=== PATIENT | female | born 1980 | race Caucasian/White ===

== ENCOUNTER 2016-10-01 12:09 | Emergency (ER) | payer OTHER ==
[~2016-10-01] VITALS: Ht 170.2 cm; Wt 81.5 kg
[~2016-10-01 12:09] MED LIST: ALEVE220 M2 PO; FEROCON CAPSUL1 EACH PO; MIRALAX17 GM PO; MOBIC15 MG PO; NO MEDS; PRILOSEC20 MG PO; VICODIN 5-3001 EACH PO; ZOFRAN4 MG PO
[2016-10-01 14:53] VITALS: BP 120/67
== END 2016-10-01 14:54 | disposition home or self-care (01) ==
LOC: EME 12:09
DX: O26.893 Other specified pregnancy related conditions, third trimester (principal); M54.31 Sciatica, right side; O09.513 Supervision of elderly primigravida, third trimester; Z3A.28 28 weeks gestation of pregnancy; Z87.891 Personal history of nicotine dependence
CPT/HCPCS: 93971; 99281; 99284

== ENCOUNTER 2016-11-23 13:38 | Inpatient (IN) | payer OTHER ==
[~2016-11-23] VITALS: Ht 170.2 cm; Wt 81.6 kg
[2016-11-23] VITALS (17 sets, daily range): BP systolic 116–141; BP diastolic 56–89
[2016-11-23] MEDS ORDERED: ZOLOFT50 MG PO (14:32)
[2016-11-23] MEDS ORDERED: PRENATAL TABLE1 EAC3 PO (14:32)
[2016-11-23 14:48] LABS: EOSINOPHIL (%) 0.3 % (0-5); HEMATOCRIT 27.5 % (36.0-46.0); IMMATURE GRANULOCYTE (%) 0.8 % (0.0-0.7); IMMATURE GRANULOCYTE COUNT 0.1 K/uL; INSTRUMENT ABS NEUTROPHIL CT 5.1 K/uL; LYMPHOCYTE COUNT 1.6 K/uL (1.0-2.8); MCH 24.9 PG (29.0-34.0); MCHC 29.8 G/DL (30.0-36.0); MCV 83.6 FL (83-99); MEAN PLAT.VOLUME 10.4 uM^3 (9.5-12.4); MONOCYTE (%) 6.1 % (3-12); MONOCYTE COUNT 0.4 K/uL (0-0.8); NEUTROPHIL (%) 70.9 % (45-76); NEUTROPHIL COUNT 5.1 K/uL (1.8-6.4); NRBC (%) 0.3 /100 WBC (0-0); PLATELET COUNT 295 K/uL (156-360); RBC DIS.WIDTH-SD 49.1 % (39-53); RED BLOOD COUNT 3.29 M/uL (3.80-5.20); WHITE BLOOD COUNT 7.2 K/uL (4.1-10.2)
[2016-11-24 00:32] VITALS: BP 128/68
[2016-11-24 01:33] VITALS: BP 131/62
[2016-11-24 06:40] LABS: EOSINOPHIL (%) 0.3 % (0-5); HEMATOCRIT 24.2 % (36.0-46.0); IMMATURE GRANULOCYTE (%) 0.5 % (0.0-0.7); IMMATURE GRANULOCYTE COUNT 0.1 K/uL; INSTRUMENT ABS NEUTROPHIL CT 8.6 K/uL; LYMPHOCYTE COUNT 2.6 K/uL (1.0-2.8); MCH 26.2 PG (29.0-34.0); MCV 84.6 FL (83-99); MONOCYTE (%) 5.7 % (3-12); MONOCYTE COUNT 0.7 K/uL (0-0.8); NEUTROPHIL (%) 71.8 % (45-76); NEUTROPHIL COUNT 8.6 K/uL (1.8-6.4); PLATELET COUNT 256 K/uL (156-360); RBC DIS.WIDTH-CV 16.1 % (11.8-14.6); RBC DIS.WIDTH-SD 49.5 % (39-53); RED BLOOD COUNT 2.86 M/uL (3.80-5.20); WHITE BLOOD COUNT 11.9 K/uL (4.1-10.2)
[2016-11-24 09:00] VITALS: BP 130/78
[2016-11-24 14:51] VITALS: BP 126/74
[2016-11-25 07:53] VITALS: BP 125/81
[2016-11-25] MEDS ORDERED: CHROMAGEN,1 CAPSULE PO (10:04)
== END 2016-11-25 14:40 | disposition home or self-care (01) | DRG 775 ==
LOC: LDRP-OP → 2WEST 13:40 → LDRP-OP 01-08 15:44
PROVIDERS: Advanced Practice Midwife
PROC: 00HU33Z Insertion of Infusion Device into Spinal Canal, Percutaneous Approach (ICD-10-PCS; principal; 2016-11-23)
PROC: 3E0R3BZ Introduction of Anesthetic Agent into Spinal Canal, Percutaneous Approach (ICD-10-PCS; principal; 2016-11-23)
PROC: 10E0XZZ Delivery of Products of Conception, External Approach (ICD-10-PCS; principal; 2016-11-23)
DX: O42.02 Full-term premature rupture of membranes, onset of labor within 24 hours of rupture (principal); O99.344 Other mental disorders complicating childbirth; Z3A.37 37 weeks gestation of pregnancy; Z37.0 Single live birth
CPT/HCPCS: 85025; 86850; 86900; 86901; C1755; J3010; J7120